=== PATIENT | female | born 1965 | race Caucasian/White ===

== ENCOUNTER 2021-02-16 19:58 | Emergency (ER) | payer BC ==
[2021-02-16 22:21] LABS: Absolute Lymphocytes (CBC) 0.6 K/uL (0.7-4.9); Basophils % 0.2 % (0-1.3); Hematocrit 50.3 % (36.0-45.0); Lymphocytes % 4.8 % (15.3-44.8); MPV 8.5 fL (7.6-11.3); RBC Red Blood Cell Count 5.58 M/uL (3.86-4.86)
[2021-02-16 22:43] LABS: Albumin 3.4 g/dL (3.4-5.0); Bilirubin Direct 0.2 mg/dL (0-0.2); Bilirubin Total 0.7 mg/dL (0.2-1.0); Potassium 4.3 mmol/L (3.5-5.1); Protein, Total 7.3 g/dL (6.4-8.2)
[2021-02-16] MEDS ORDERED: FAMOTIDINE 20 MG/2 ML VIAL IV ONE (22:43)
[2021-02-16] MEDS ORDERED: MORPHINE 4 MG/ML SYR ONE (22:43)
[2021-02-16] MEDS ORDERED: ONDANSETRON 4 MG/2 ML VIAL ONE (22:43)
[2021-02-16] MEDS ORDERED: NA CHLORIDE 0.9% 1,000 ML ONE (22:43)
[2021-02-16 23:34] LABS: SARS-COV-2 RT PCR NEGATIVE (NEGATIVE)
[2021-02-17 01:25] LABS: Urine Blood Trace-intact (Negative); Urine Glucose 3+ (Negative); Urine Protein Negative (Negative); Urine Specific Gravity <=1.005 (1.005-1.030)
[2021-02-17 01:30] LABS: Urine Bacteria 20-50 /HPF (<20); Urine RBC <5 /HPF (NONE SEEN)
--- NOTE | 2021-02-17 01:49 | ER ---
Nurse's Notes [facility] Name: Allison Chadwick Age: 55 yrs Sex: Female : 1965 Arrival Date: 02/16/2021 Time: 20:02 Bed 14 Private MD: Diagnosis: Upper abdominal pain, unspecified;Nausea with vomiting, unspecified;Diabetes mellitus due to underlying condition with hyperglycemia;UTI/ Urinary tract infection, site not specified Presentation: 02/16 20:27 Chief complaint: Patient states: NV began today at 1100, states Upper ABD pain and vg1 umbilical pain. Denies diarrhea. Coronavirus screen: Vaccine status: Patient reports being unvaccinated. Client denies travel out of the [place] in the last 14 days. Ebola Screen: Patient negative for fever greater than or equal to 101.5 degrees Fahrenheit, and additional compatible Ebola Virus Disease symptoms. Initial Sepsis Screen: Does the patient meet any 2 criteria? HR > 90 bpm. Risk Assessment: Do you want to hurt yourself or someone else? Patient reports no desire to harm self or others. Onset of symptoms was February 16, 2021. 20:27 Method Of Arrival: Ambulatory vg1 20:27 Acuity: LIZ 3 vg1 02/17 00:00 Initial Sepsis Screen: Does the patient have a suspected source of infection? No. mr2 Patient's initial sepsis screen is negative. Triage Assessment: 02/16 20:29 General: Appears in no apparent distress. uncomfortable, Behavior is calm, cooperative. vg1 Pain: Complains of pain in epigastric area, umbilical area, right upper quadrant and left upper quadrant Pain currently is 8 out of 10 on a pain scale. Also complains of nausea. GI: Abdomen is non-distended, Reports nausea, vomiting. 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 - Social history:: Smoking status: Patient denies any tobacco usage or history of. Screenin/17 00:00 Abuse screen: Denies threats or abuse. Denies injuries from another. Nutritional mr2 screening: No deficits noted. Tuberculosis screening: No symptoms or risk factors identified. Fall Risk None identified. Assessment: 00:00 GI: Bowel sounds present X 4 quads. Bruits are absent. Abd is soft and non tender X 4 mr2 quads. Vital Signs: 02/16 20:27 BP 115 / 87; Pulse 122; Resp 18; Temp 98.4; Pulse Ox 100% ; Weight 67.59 kg; Height 5 vg1 ft. 2 in. (157.48 cm); Pain 8/10; 02/17 01:00 BP 122 / 84; Pulse 90; Resp 18; Temp 98.4; Pulse Ox 97% on R/A; mr2 02/16 20:27 Body Mass Index 27.25 (67.59 kg, 157.48 cm) vg1 ED Course: 02/16 20:02 Patient arrived in ED. kc5 20:29 Triage completed. vg1 20:29 Arm band placed on. vg1 21:39 Jack Villa PA is PHCP. cp 21:39 Sera Laughlin MD is Attending Physician. cp 21:42 Silvio Tanner, MARILY is Primary Nurse. mr2 23:18 CT Abd/Pelvis - IV Contrast Only In Process Unspecified. EDMS 02/17 00:00 Patient has correct armband on for positive identification. Call light in reach. Side mr2 rails up X2. 00:00 No provider procedures requiring assistance completed. Inserted saline lock: 18 gauge mr2 in left antecubital area, using aseptic technique. 00:43 XRAY Chest (1 view) In Process Unspecified. EDMS 02:00 IV discontinued. mr2 Administered Medications: 02/16 22:38 Drug: Zofran (Ondansetron) 4 mg Route: IVP; Site: left antecubital; mr2 22:38 Drug: Pepcid (famotidine) 20 mg Route: IVP; Site: left antecubital; mr2 22:38 Drug: morphine 4 mg Route: IVP; Site: left antecubital; mr2 22:39 Drug: NS 0.9% 1000 ml Route: IV; Rate: 1 bolus; Site: left antecubital; mr2 Outcome: 02/17 01:48 Discharge ordered by . cp 02:00 Discharged to home ambulatory. mr2 02:00 Condition: good 02:00 Discharge instructions given to patient. 02:30 Patient left the ED. mr2 Signatures: Dispatcher [employer] EDMS Jack Villa PA PA cp Garcia, Victoria, RN RN vg1 Silvio Tanner RN RN mr2 Nitza Morales kc5 Corrections: (The following items were deleted from the chart) 02/16 20:31 20:29 Allergies: No Known Allergies; vg1 vg1
--- NOTE | 2021-02-17 01:50 | EDPHYS ---
Physician Documentation [facility] Name: Allison Chadwick Age: 55 yrs Sex: Female : 1965 Arrival Date: 02/16/2021 Time: 20:02 Bed 14 Private MD: ED Physician Sera Laughlin HPI: 02/16 22:15 This 55 yrs old Female presents to ER via Ambulatory with complaints of Abdominal Pain, cp Vomiting. 22:15 The patient presents with abdominal pain mid upper abdomen. cp 22:15 Onset: The symptoms/episode began/occurred today, about 1100. cp 22:15 The symptoms do not radiate. Associated signs and symptoms: Pertinent negatives: blood cp in stools, chest pain, constipation, diarrhea, dysuria, fever, palpitations, shortness of breath, vomiting blood. The symptoms are described as constant. Severity of pain: in the emergency department the pain is unchanged despite home interventions. 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 - Social history:: Smoking status: Patient denies any tobacco usage or history of. ROS: 22:20 Abdomen/GI: Positive for abdominal pain, nausea and vomiting, Negative for diarrhea, cp constipation, hematemesis, black/tarry stool, rectal bleeding. 22:20 Constitutional: Negative for body aches, chills, fever. cp 22:20 Cardiovascular: Negative for chest pain, palpitations. 22:20 Eyes: Negative for injury, pain, redness, and discharge. cp 22:20 ENT: Negative for ear pain, sore throat, difficulty swallowing, difficulty handling secretions. 22:20 Respiratory: Negative for cough, shortness of breath, wheezing. 22:20 : Negative for urinary symptoms. 22:20 Neuro: Negative for altered mental status, headache, weakness. 22:20 All other systems are negative. Exam: 22:25 Constitutional: The patient appears in no acute distress, alert, awake, cp non-diaphoretic, non-toxic, well developed, well nourished, uncomfortable. 22:25 Head/Face: Normocephalic, atraumatic. cp 22:25 Eyes: Periorbital structures: appear normal, Conjunctiva: normal, no exudate, no injection, Sclera: no appreciated abnormality, Lids and lashes: appear normal, bilaterally. 22:25 ENT: External ear(s): are unremarkable, Nose: is normal, Mouth: Lips: moist, Oral mucosa: moist, Posterior pharynx: Airway: no evidence of obstruction, patent. 22:25 Chest/axilla: Inspection: normal. 22:25 Cardiovascular: Rate: tachycardic, Rhythm: regular, Edema: is not appreciated, JVD: is not appreciated. 22:25 Respiratory: the patient does not display signs of respiratory distress, Respirations: normal, no use of accessory muscles, no retractions, labored breathing, is not present, Breath sounds: are clear throughout, no decreased breath sounds, no stridor, no wheezing. 22:25 Abdomen/GI: Inspection: abdomen appears normal, Bowel sounds: active, all quadrants, Palpation: soft, in all quadrants, moderate abdominal tenderness, in the umbilical area, right upper quadrant and left upper quadrant, rebound tenderness, is not appreciated, voluntary guarding, is elicited in the umbilical area, right upper quadrant and left upper quadrant. 22:25 Back: CVA tenderness, is absent. 22:25 Skin: cellulitis, is not appreciated, no rash present. 22:25 Neuro: Orientation: to person, place \T\ time. Mentation: is normal, Motor: moves all fours, strength is normal, Sensation: is normal. Vital Signs: 20:27 BP 115 / 87; Pulse 122; Resp 18; Temp 98.4; Pulse Ox 100% ; Weight 67.59 kg; Height 5 vg1 ft. 2 in. (157.48 cm); Pain 8/10; 02/17 01:00 BP 122 / 84; Pulse 90; Resp 18; Temp 98.4; Pulse Ox 97% on R/A; mr2 02/16 20:27 Body Mass Index 27.25 (67.59 kg, 157.48 cm) vg1 MDM: 02/16 21:52 Patient medically screened. 02/17 00:54 Test interpretation: by ED physician or midlevel provider: chest xray negative for cp pneumonia. 01:49 Data reviewed: vital signs, nurses notes, lab test result(s), radiologic studies, CT cp scan, plain films. 01:49 Counseling: I had a detailed discussion with the patient and/or guardian regarding: the cp historical points, exam findings, and any diagnostic results supporting the discharge/admit diagnosis, lab results, radiology results, to return to the emergency department if symptoms worsen or persist or if there are any questions or concerns that arise at home. Response to treatment: the patient's symptoms have markedly improved after treatment, VSS. Pain and nausea markedly improved and vomiting resolved. Will discharge to home for continued monitoring. 02/16 21:53 Order name: Basic Metabolic Panel 02/16 21:53 Order name: CBC with Diff; Complete Time: 22:30 02/16 22:30 Interpretation: Normal except: WBC 12.00; RBC 5.58; HGB 16.7; HCT 50.3; LILI% 88.4; LYM% cp 4.8; NEUT A 10.6; LYMA 0.6. 02/16 21:53 Order name: Hepatic Function 02/16 21:53 Order name: Lipase 02/16 21:54 Order name: Basic Metabolic Panel; Complete Time: 00:29 EDMS 02/17 00:29 Interpretation: Normal except: NA 135; GLUC 323; BUN 20; GFR 88. 02/16 21:54 Order name: Liver (Hepatic) Function; Complete Time: 00:29 EDMS 02/17 00:29 Interpretation: Normal except: GLOB 3.9; A/G 0.9. 02/16 21:54 Order name: Lipase; Complete Time: 00:29 EDMS 02/16 22:54 Order name: COVID-19/FLU A+B; Complete Time: 00:29 EDMS 02/17 00:53 Interpretation: Reviewed. 02/17 00:30 Order name: Urine Microscopic Only 02/17 00:31 Order name: Urine Microscopic Only; Complete Time: 01:49 EDMS 02/17 01:49 Interpretation: Normal except: UWBC 5-10; UBACT 20-50; SQEPI 5-10. 02/17 01:25 Order name: Urine Dipstick-Ancillary; Complete Time: 01:49 EDMT 02/17 01:49 Interpretation: Normal except: UGLUC 3+; UKET 3+; UBLD Trace-intact. cp 02/17 01:31 Order name: Urine Culture EDMT 02/16 21:53 Order name: IV Saline Lock cp 02/16 21:53 Order name: Labs collected and sent cp 02/16 22:34 Order name: CT Abd/Pelvis - IV Contrast Only cp 02/17 00:29 Order name: XRAY Chest (1 view) cp 02/17 00:30 Order name: Urine Dipstick-Ancillary (obtain specimen) cp 02/17 00:30 Order name: Urine Test (obtain specimen) cp 02/17 00:31 Order name: Accucheck Blood Glucose cp 02/17 00:31 Order name: PO challenge cp 02/17 00:51 Order name: Vital Signs cp Administered Medications: 02/16 22:38 Drug: Zofran (Ondansetron) 4 mg Route: IVP; Site: left antecubital; mr2 22:38 Drug: Pepcid (famotidine) 20 mg Route: IVP; Site: left antecubital; mr2 22:38 Drug: morphine 4 mg Route: IVP; Site: left antecubital; mr2 22:39 Drug: NS 0.9% 1000 ml Route: IV; Rate: 1 bolus; Site: left antecubital; mr2 Disposition Summary: 02/17/21 01:48 Discharge Ordered Location: Home cp Problem: new cp Symptoms: have improved cp Condition: Stable cp Diagnosis - Upper abdominal pain, unspecified cp - Nausea with vomiting, unspecified cp - Diabetes mellitus due to underlying condition with hyperglycemia cp - UTI/ Urinary tract infection, site not specified cp Followup: cp - With: Private Physician - When: 1 - 2 days - Reason: Recheck today's complaints Discharge Instructions: - Discharge Summary Sheet cp - Abdominal Pain, Adult cp - Nausea and Vomiting, Adult cp - Urinary Tract Infection, Adult cp - Blood Glucose Monitoring, Adult cp - Diabetes Mellitus and Nutrition, Adult cp Forms: - Medication Reconciliation Form cp - Thank You Letter cp - Antibiotic Education cp - Prescription Opioid Use cp Prescriptions: - Protonix 40 mg Oral Tablet - take 1 tablet by ORAL route once daily; 30 tablet; Refills: 0, Product cp Selection Permitted - Zofran 4 mg Oral Tablet - take 1 tablet by ORAL route every 12 hours As needed; 20 tablet; Refills: 0, cp Product Selection Permitted - Augmentin 875-125 mg Oral Tablet - take 1 tablet by ORAL route every 12 hours for 7 days; 14 tablet; Refills: 0, cp Product Selection Permitted Signatures: Dispatcher [employer] EDMS Jack Villa PA PA cp Garcia, Victoria RN RN vg1 Silvio Tanner RN RN mr2 Corrections: (The following items were deleted from the chart) 20:31 20:29 Allergies: No Known Allergies; 1 vg1 22:54 22:39 CORONAVIRUS+MR.LAB.BRZ ordered. EDMS EDMS 22:54 22:39 Influenza Screen (A \T\ B)+BA.LAB.BRZ ordered. EDMS EDMS
[2021-02-17 02:57] VITALS: TEMP 98.4
[2021-02-17 02:58] VITALS: BP 122/84; O2SAT 97
--- NOTE | 2021-02-17 08:46 | RAD REPORT ---
EXAM DESCRIPTION: RAD - Chest Single View - 02/17/2021 12:43 am CLINICAL HISTORY: COUGH Chest pain. COMPARISON: No comparisons FINDINGS: Portable technique limits examination quality. The lungs are grossly clear. The heart is normal in size. No displaced fractures. IMPRESSION: No acute intrathoracic process suspected.
--- NOTE | 2021-02-19 12:20 | RAD REPORT ---
EXAM DESCRIPTION: CT Abdomen and Pelvis With Intravenous Contrast CLINICAL HISTORY: The patient is 55 years old and is Female; mid upper abdomen pain TECHNIQUE: Axial computed tomography images of the abdomen and pelvis with intravenous contrast. S agittal and coronal reformatted images were created and reviewed. This CT exam was performed using one or more of the following dose reduction techniques: automated exposure control, adjustment of t he mA and/or kV according to patient size, and/or use of iterative reconstruction technique. COMPARISON: No relevant prior studies available. FINDINGS: Lung bases: Unremarkable. No mass. No consolidation. ABDOMEN: Liver: Mild hepatomegaly with diffuse hepatic steatosis. Gallbladder and bile ducts: Unremarkable. No calcified stones. No ductal dilation. Pancreas: Unremarkable. No mass. No ductal dilation. Spleen: Unremarkable. No splenomegaly. Adrenals: Unremarkable. No mass. Kidneys and ureters: Unremarkable. No solid mass. No hydronephrosis. Stomach and bowel: Unremarkable. No obstruction. No mucosal thickening. PELVIS: Appendix: No findings to suggest acute appendicitis. Bladder: Bladder is distended. Reproductive: Unremarkable as visualized. ABDOMEN and PELVIS: Intraperitoneal space: Unremarkable. No free air. No significant fluid collection. Bones/joints: 11 mm of anterolisthesis of L5 on S1 with bilateral pars defects. No acute fracture. No dislocation. Soft tissues: Unremarkable. Vasculature: Unremarkable. No abdominal aortic aneurysm. Lymph nodes: Unremarkable. No enlarged lymph nodes. IMPRESSION: No acute findings in the abdomen or pelvis. Electronically signed by: Pasquale Tesfaye MD 02/16/2021 11:43 PM SOCIAL MEDIA MARKETING MANAGER Due to temporary technical issues with the PACS/Fluency reporting system, reports are being signed by the in house radiologists without review as a courtesy to insure prompt reporting. The interpreting radiologist is fully responsible for the content of the report.
== END 2021-02-17 02:30 | disposition home or self-care (01) ==
LOC: ER 19:58
DX: E11.65 Type 2 diabetes mellitus with hyperglycemia (principal); N39.0 Urinary tract infection, site not specified; R11.2 Nausea with vomiting, unspecified; Z88.3 Allergy status to other anti-infective agents; Z88.5 Allergy status to narcotic agent; Z20.822 Contact with and (suspected) exposure to COVID-19
CPT/HCPCS: 87088; 85025; 87086; 80048; 36415; 80076; 83690; 0240U; 74177; 71045; 96375; 96374; 99283; Q9967; J7030; J2405; 81003; 81015